=== PATIENT | male | born 1985 | race Caucasian/White ===

== ENCOUNTER 2024-07-13 18:48 | Emergency (ER) | payer SELFPAY ==
[~2024-07-13] VITALS: Ht 177.8 cm; Wt 113.4 kg
[2024-07-13 18:58] VITALS: PULSE 120; RESP 20; TEMP 97.2
[2024-07-13 20:23] LABS: BASOPHILS # (AUTO) 0.1 (0.0-0.1); BASOPHILS % 0.8 % (0.0-1.0); EOSINOPHILS # (AUTO) 0.2 (0.0-0.4); EOSINOPHILS % 2.3 % (0.0-6.0); HEMOGLOBIN 15.4 g/dL (14.0-18.0); LYMPHOCYTES # (AUTO) 1.4 (1.0-3.2); LYMPHOCYTES % 18.4 % (18.0-39.1); MEAN CORPUSCULAR HEMOGLOBIN 30.1 pg (28-32); MEAN CORPUSCULAR HGB CONC 34.2 g/dL (31-35); MEAN CORPUSCULAR VOLUME 88.1 fL (81-99); MONOCYTES # (AUTO) 0.6 (0.2-0.8); MONOCYTES % 8.4 % (4.4-11.3); NEUTROPHILS # (AUTO) 5.1 (2.1-6.9); NEUTROPHILS % 69.8 % (38.7-80.0); PLATELET COUNT 310 x10e3/uL (140-360); RED BLOOD COUNT 5.11 x10e6/uL (4.3-5.7); WHITE BLOOD COUNT 7.35 x10e3/uL (4.8-10.8)
[2024-07-13] MEDS: SODIUM CHLORIDE 0.9% 1000ML 1,000 ML IV STA (20:29)
[2024-07-13 20:38] LABS: ALANINE AMINOTRANSFERASE 50 IU/L (0-55); ALBUMIN 4.1 g/dL (3.5-5.0); ALBUMIN/GLOBULIN RATIO 1.4 (0.8-2.0); ALKALINE PHOSPHATASE 68 IU/L (40-150); ANION GAP 15.7 mmol/L (8-16); BILIRUBIN,TOTAL 0.5 mg/dL (0.2-1.2); BLOOD UREA NITROGEN 14 mg/dL (7-26); BUN/CREATININE RATIO 13 (6-25); CALCIUM 9.7 mg/dL (8.4-10.2); CARBON DIOXIDE 23 mmol/L (22-29); CHLORIDE 106 mmol/L (98-107); CREATINE KINASE 99 IU/L (30-200); CREATININE, SERUM 1.11 mg/dL (0.72-1.25); EST GLOMERULAR FILTRATION RATE 88 ML/MIN (>=60); GLUCOSE 117 mg/dL (74-118); POTASSIUM 3.7 mmol/L (3.5-5.1); SODIUM 141 mmol/L (136-145); TOTAL PROTEIN 7.1 g/dL (6.5-8.1)
[2024-07-13 20:44] LABS: AMPHETAMINES SCREEN,URINE NEGATIVE (NEGATIVE); BENZODIAZEPINES SCREEN,URINE POSITIVE (NEGATIVE); CANNABINOIDS SCREEN,URINE POSITIVE (NEGATIVE); COCAINE SCREEN,URINE NEGATIVE (NEGATIVE); METHADONE SCREEN, URINE NEGATIVE (NEGATIVE); OPIATES SCREEN,URINE NEGATIVE (NEGATIVE); PHENCYCLIDINE SCREEN,URINE NEGATIVE (NEGATIVE)
[2024-07-13 20:46] LABS: TROPONIN I < 0.001 ng/mL (0-0.300)
[2024-07-13] MEDS: DIAZEPAM INJ 5 MG/ML 2 ML IV STA (21:40)
[2024-07-13 22:25] VITALS: BP 120/85; PULSE 86; RESP 18; TEMP 98; O2SAT 98
== END 2024-07-13 22:20 | disposition home or self-care (01) ==
LOC: ER 18:54
DX: R00.2 Palpitations (principal); F12.10 Cannabis abuse, uncomplicated; R94.31 Abnormal electrocardiogram [ECG] [EKG]
CPT/HCPCS: 36415; 71045; 80053; 80307; 80320; 82550; 83690; 83880; 84484; 85025; 93005; 99284; J3360; J7030